=== PATIENT | male | born 1940 | race Caucasian/White ===

== ENCOUNTER 2020-08-18 17:56 | Emergency (ER) | payer MEDICARE, BC ==
[2020-08-18] MEDS ORDERED: HYDROcodone/Acetaminophen 5/325 mg Tablet ONE (18:36)
--- NOTE | 2020-08-18 18:38 | RAD ---
Right hand 3 views HISTORY: Injury. FINDINGS: There are mild degenerative changes of the thumb without acute osseous abnormality demonstr ated. No displaced fractures are apparent. The fingers are held in persistent flexion on all views, significantly limiting evaluation. Cortical remodeling at the base of the fifth metacarpal may reflect an old, healed injury. IMPRESSION : Limited exam due to persistent flexion of the fingers. No acute osseous abnormalities are demonstrate d. If symptoms are referable to a single finger, please consider dedicated exam of that digit.
== END 2020-08-18 19:55 | disposition home or self-care (01) ==
LOC: MADERS 17:56
DX: S63.612A Unspecified sprain of right middle finger, initial encounter (principal); W22.8XXA Striking against or struck by other objects, initial encounter

== ENCOUNTER 2022-05-08 06:44 | Outpatient (CLI) | payer MEDICARE, BC ==
[2022-05-08 07:36] LABS: Anion Gap 12 mmol/L (10-20); BUN (Urea Nitrogen) 24 mg/dL (8.4-25.7); Calc. Creatinine Clearance 0 mL/min (70-130); Calcium 9.2 mg/dL (7.8-10.44); Carbon Dioxide 28 mmol/L (23-31); Chloride 104 mmol/L (98-107); Estimated GFR 86; Glucose 99 mg/dL (83-110); Potassium 4.9 mmol/L (3.5-5.1); Sodium 139 mmol/L (136-145)
== END 2022-05-08 06:45 | disposition home or self-care (01) ==
LOC: MADLAB 06:44
PROVIDERS: ATTEND Family Medicine
DX: E87.6 Hypokalemia (principal)
CPT/HCPCS: 36415; 80048

== ENCOUNTER 2023-03-19 17:48 | Emergency (ER) | payer MEDICARE, BC ==
[2023-03-19] MEDS ORDERED: Morphine 4 MG/ML VIAL ONE ×2 (18:30→20:56)
[2023-03-19] MEDS ORDERED: Ondansetron PF 4 MG/2 ML Vial ONE ×2 (18:30→20:56)
[2023-03-19 18:44] LABS: #Eosinphils 0.1 thou/uL (0.0-0.7); #Lymphocytes 0.5 thou/uL (1.20-3.40); #Monocytes 0.5 thou/uL (0.11-0.59); #Neutrophils 7.5 thou/uL (1.40-6.50); %Basophils 0.5 % (0.0-1.0); %Eosinophils 0.7 % (0.0-10.0); %Lymphocytes 5.4 % (21.0-51.0); %Monocytes 5.3 % (0.0-10.0); %Neutrophils 88.1 % (42.0-75.0); Hematocrit 39.2 % (42.0-52.0); Mean Corpuscular Hemoglobin 29.5 pg (27.0-31.0); Mean Corpuscular Volume 89.2 fl (78.0-98.0); Mean Platelet Volume 9.6 fL (7.4-10.4); Platelet Count 197 10x3/uL (130-400); RBC Distribution Width 18.4 % (11.5-14.5); White Blood Cell (WBC) Count 8.5 10x3/uL (4.8-10.8)
[2023-03-19 18:54] LABS: ALT (SGPT) 43 U/L (8-55); AST (SGOT) 37 U/L (5-34); Albumin 4.6 g/dL (3.4-4.8); Alkaline Phosphatase 87 U/L (40-110); Anion Gap 16 mmol/L (10-20); BUN (Urea Nitrogen) 35 mg/dL (8.4-25.7); Bilirubin, Total 0.3 mg/dL (0.2-1.2); Calc. Creatinine Clearance 0 mL/min (70-130); Calcium 10.3 mg/dL (7.8-10.44); Carbon Dioxide 29 mmol/L (23-31); Chloride 96 mmol/L (98-107); Estimated GFR 85; Globulin 3.2 g/dL (2.4-3.5); Glucose 169 mg/dL (83-110); Lipase 47 U/L (8-78); Magnesium 2.1 mg/dL (1.6-2.6); Potassium 4.1 mmol/L (3.5-5.1); Protein, Total 7.8 g/dL (5.8-8.1); Sodium 137 mmol/L (136-145)
[2023-03-19] MEDS ORDERED: Sodium Chloride 0.9% 1,000 ML ONE ×2 (18:59→20:56)
[2023-03-19 19:48] LABS: Bilirubin Negative (Negative); Blood, Urine Negative (Negative); Clarity Turbid (Clear); Glucose, Urine (Dipstick) Negative (Negative); Ketone, Urine Negative (Negative); Leukocyte Negative (Negative); Nitrite Negative (Negative); Protein, Urine (Dipstick) 30 mg/dL (Neg-Trace); Urobilinogen 0.2 mg/dL (Less than 2); pH, Urine 7.5 (5.0-9.0)
[2023-03-19 19:51] LABS: CAUTI Indications for Culture Dysuria,urgency,freq; RBC/HPF 0-3 HPF (0-3); Squamous Epithelial 0-3 HPF (0-3); WBC/HPF 0-3 HPF (0-3)
[2023-03-19 19:52] LABS: Urine Culture Reflex No No
== END 2023-03-19 21:44 | disposition short-term general hospital (02) ==
LOC: MADERS 17:48
DX: K56.609 Unspecified intestinal obstruction, unspecified as to partial versus complete obstruction (principal); I10 Essential (primary) hypertension; Z79.899 Other long term (current) drug therapy
CPT/HCPCS: 74177; 80053; 81001; 83605; 83690; 83735; 85025; 94760; 96374; 96375; 96376; J2270; J2405; J7050